=== PATIENT | female | born 1955 | race Caucasian/White ===

== ENCOUNTER 2021-08-02 12:38 | Inpatient (IN) | payer OTHER ==
[2021-08-02 14:43] VITALS: BMI 28.6
[2021-08-02] MEDS ORDERED: METHOCARBAMOL 500 MG TABLET PO PRN (14:52)
[2021-08-02] MEDS ORDERED: IBUPROFEN 400 MG TABLET (FP) PO PRN (14:52)
[2021-08-02] MEDS ORDERED: ONDANSETRON *ODT* 4 MG TABLET SL PRN (14:52)
[2021-08-02] MEDS ORDERED: LORazepam 1 MG TABLET PO PRN (14:52)
[2021-08-02] MEDS ORDERED: ACETAMINOPHEN 325 MG TABLET (FP) PO PRN ×2 (14:52)
[2021-08-02] MEDS ORDERED: MAGNESIUM CITRATE 300 ML BOTTLE PO PRN (14:52)
[2021-08-02] MEDS ORDERED: MAGNESIUM HYDROX 2400MG/30ML ORAL SUSPENSION 30 ML CUP PO PRN (14:52)
[2021-08-02] MEDS ORDERED: MENTHOL/PHENOL 1 EACH UD MM PRN (14:52)
[2021-08-02] MEDS ORDERED: MAG HYDROX/AL HYDROX/SIMETH 30 ML UNIT-DOSE CUP PO PRN (14:52)
[2021-08-02] MEDS ORDERED: NICOTINE 10 MG CARTRIDGE (INHALER) IH PRN (14:52)
[2021-08-02] MEDS ORDERED: amLODIPine BESYLATE 5 MG TABLET (FP) PO ONE (15:04)
[2021-08-02] MEDS ORDERED: LISINOPRIL 10 MG TABLET PO SCH (15:30)
[2021-08-02] MEDS: ALBUTEROL SO4 HFA INHALER IH PRN (16:47)
[2021-08-02 17:02] LABS: HEMATOCRIT 45.3 % (32.4-45.2); HEMOGLOBIN 15.7 GM/dL (10.7-15.3); MCH 32.4 pg (25.7-33.7); MCHC 34.6 g/dl (32.0-36.0); MEAN CELL VOLUME 93.7 fl (80-96); PLATELET COUNT 273 10^3/uL (134-434); RBC 4.83 M/mm3 (3.60-5.2); RDW 14.3 % (11.6-15.6); WHITE BLOOD COUNT 8.1 K/mm3 (4.0-10.0)
[2021-08-02 17:37] LABS: CALCIUM 9.4 mg/dL (8.5-10.1)
[2021-08-02 17:38] LABS: ALBUMIN 3.7 g/dl (3.4-5.0); BLOOD UREA NITROGEN 15.8 mg/dL (7-18)
[2021-08-02 17:41] LABS: CREATININE 1.3 mg/dL (0.55-1.3)
[2021-08-02 17:43] LABS: BILIRUBIN,TOTAL 1.1 mg/dL (0.2-1)
[2021-08-02] MEDS: LISINOPRIL 10 MG TABLET PO SCH (18:19)
[2021-08-02] MEDS: hydrOXYzine PAMOATE 25 MG CAPSULE (FP) PO SCH ×2 (18:20→22:22)
[2021-08-02] MEDS: LORazepam 2 MG TABLET PO SCH ×2 (18:21→22:22)
[2021-08-02] MEDS: BISMUTH SUBSALICYLATE 524 MG/30 ML PO PRN ×2 (19:23→22:26)
[2021-08-02] MEDS: BUDESONIDE/FORMETEROL FUMARATE 80/4.5 mcg INHALER IH SCH (22:19)
[2021-08-02] MEDS: THIAMINE HCL 100 MG TABLET (FP) PO SCH (22:22)
[2021-08-02] MEDS: MELATONIN 5 MG TABLETS PO SCH (22:22)
[2021-08-02] MEDS: ATORVASTATIN CA 20 MG TABLET (FP) PO SCH (22:22)
[2021-08-03] MEDS: ALBUTEROL SO4 HFA INHALER IH PRN ×2 (06:05→23:30)
[2021-08-03] MEDS: LORazepam 2 MG TABLET PO SCH ×4 (06:06→22:54)
[2021-08-03] MEDS: hydrOXYzine PAMOATE 25 MG CAPSULE (FP) PO SCH ×4 (06:09→22:56)
[2021-08-03] MEDS: BUDESONIDE/FORMETEROL FUMARATE 80/4.5 mcg INHALER IH SCH ×2 (10:30→22:55)
[2021-08-03] MEDS: LISINOPRIL 10 MG TABLET PO SCH (10:30)
[2021-08-03 11:12] LABS: HIV INTERPRETATION NEGATIVE (NEGATIVE)
[2021-08-03] MEDS: buPROPion HCL 75 MG TABLET PO SCH (12:08)
[2021-08-03] MEDS: CITALOPRAM HYDROBROMIDE 10 MG TABLET PO SCH (12:08)
[2021-08-03] MEDS: ATORVASTATIN CA 20 MG TABLET (FP) PO SCH (22:54)
[2021-08-03] MEDS: THIAMINE HCL 100 MG TABLET (FP) PO SCH (22:54)
[2021-08-03] MEDS: MELATONIN 5 MG TABLETS PO SCH (22:55)
[2021-08-04] MEDS: hydrOXYzine PAMOATE 25 MG CAPSULE (FP) PO SCH ×5 (05:53→22:42)
[2021-08-04] MEDS: LORazepam 1 MG TABLET PO SCH ×4 (05:54→22:40)
[2021-08-04] MEDS: BUDESONIDE/FORMETEROL FUMARATE 80/4.5 mcg INHALER IH SCH ×2 (10:41→22:40)
[2021-08-04] MEDS: CITALOPRAM HYDROBROMIDE 10 MG TABLET PO SCH (10:43)
[2021-08-04] MEDS: LISINOPRIL 10 MG TABLET PO SCH (10:43)
[2021-08-04] MEDS: buPROPion HCL 75 MG TABLET PO SCH (10:44)
[2021-08-04] MEDS: ATORVASTATIN CA 20 MG TABLET (FP) PO SCH (22:39)
[2021-08-04] MEDS: THIAMINE HCL 100 MG TABLET (FP) PO SCH (22:39)
[2021-08-04] MEDS: MELATONIN 5 MG TABLETS PO SCH (22:40)
[2021-08-04] MEDS: ALBUTEROL SO4 HFA INHALER IH PRN (22:44)
[2021-08-05] MEDS ORDERED: LORazepam 0.5 MG TABLET PO PRN
[2021-08-05] MEDS: LORazepam 0.5 MG TABLET PO SCH ×4 (05:57→22:20)
[2021-08-05] MEDS: hydrOXYzine PAMOATE 25 MG CAPSULE (FP) PO SCH ×6 (05:57→22:20)
[2021-08-05] MEDS: BUDESONIDE/FORMETEROL FUMARATE 80/4.5 mcg INHALER IH SCH ×3 (09:42→23:20)
[2021-08-05] MEDS: LISINOPRIL 10 MG TABLET PO SCH (09:43)
[2021-08-05] MEDS: buPROPion HCL 75 MG TABLET PO SCH (09:44)
[2021-08-05] MEDS: CITALOPRAM HYDROBROMIDE 10 MG TABLET PO SCH (09:44)
[2021-08-05] MEDS: BISMUTH SUBSALICYLATE 524 MG/30 ML PO PRN ×2 (10:43→18:55)
[2021-08-05] MEDS: ALBUTEROL SO4 HFA INHALER IH PRN (18:45)
[2021-08-05] MEDS: ATORVASTATIN CA 20 MG TABLET (FP) PO SCH (22:20)
[2021-08-05] MEDS: MELATONIN 5 MG TABLETS PO SCH (22:21)
[2021-08-05] MEDS: THIAMINE HCL 100 MG TABLET (FP) PO SCH (22:21)
[2021-08-06] MEDS: ALBUTEROL SO4 HFA INHALER IH PRN ×2 (03:10→07:03)
[2021-08-06] MEDS ORDERED: LORazepam 0.5 MG TABLET PO ONE (05:00)
[2021-08-06] MEDS: hydrOXYzine PAMOATE 25 MG CAPSULE (FP) PO SCH ×2 (06:06→10:05)
[2021-08-06 09:34] VITALS: BP 155/72; PULSE 69; TEMP 97.1
[2021-08-06] MEDS: LISINOPRIL 10 MG TABLET PO SCH (10:02)
[2021-08-06] MEDS: buPROPion HCL 75 MG TABLET PO SCH (10:02)
[2021-08-06] MEDS: CITALOPRAM HYDROBROMIDE 10 MG TABLET PO SCH (10:03)
[2021-08-06] MEDS: BUDESONIDE/FORMETEROL FUMARATE 80/4.5 mcg INHALER IH SCH (10:03)
== END 2021-08-06 10:18 | disposition home or self-care (01) | DRG 897 ==
LOC: YASAS 12:38 → Y6N 15:30
PROVIDERS: ADMIT Allergy & Immunology; ATTEND Allergy & Immunology
PROC: HZ2ZZZZ Detoxification Services for Substance Abuse Treatment (ICD-10-PCS; principal; 2021-08-02)
DX: F10.230 Alcohol dependence with withdrawal, uncomplicated (principal); M31.30 Wegener's granulomatosis without renal involvement; F17.210 Nicotine dependence, cigarettes, uncomplicated; F10.24 Alcohol dependence with alcohol-induced mood disorder; F32.9 Major depressive disorder, single episode, unspecified; E78.5 Hyperlipidemia, unspecified; I10 Essential (primary) hypertension; J45.20 Mild intermittent asthma, uncomplicated; R73.9 Hyperglycemia, unspecified; Z85.3 Personal history of malignant neoplasm of breast; Z90.13 Acquired absence of bilateral breasts and nipples
CPT/HCPCS: 36415; 80053; 82962; 85027; 86780; 87389; C9803; U0003; U0005